=== PATIENT | male | born 1965 | race Caucasian/White ===

== ENCOUNTER 2023-03-23 05:32 | Outpatient (CLI) | payer OTHER ==
[~2023-03-23] VITALS: Ht 160 cm; Wt 121.4 kg
== END 2023-03-23 13:30 | disposition home or self-care (01) ==
LOC: PREOP 05:32
PROVIDERS: ATTEND Specialist
DX: Z01.818 Encounter for other preprocedural examination (principal)

== ENCOUNTER 2023-03-25 07:37 | Day surgery (SDC) | payer OTHER ==
[~2023-03-25] VITALS: Ht 160 cm; Wt 121.4 kg
[2023-03-25] MEDS ORDERED: MIDAZOLAM INJ 2 MG/2 ML VIAL ONE (07:53)
[2023-03-25] MEDS ORDERED: TIMOLOL 0.5% (CATARACTS) 0.3 ML BTL OU PRN (08:00)
[2023-03-25] MEDS ORDERED: MOXIFLOXACIN OPHTH SOLN 5 MG/ML 0.5 ML SYRINGE OP ONE (08:00)
[2023-03-25] MEDS ORDERED: LIDOCAINE PF 1% 2 ML VIAL IR PRN (08:00)
[2023-03-25] MEDS ORDERED: POVIDONE IODINE OPHTH SOLN 5% 30 ML OP ONE (08:00)
[2023-03-25] MEDS: TETRACAINE 0.5% OPHTH SOLN 5 ML BTL OU PRN ×4 (08:08→08:26)
[2023-03-25] MEDS: TROPICAMIDE 1% OPH SOLN (MYDRIACYL) 15 ML BTL OP SCH ×3 (08:15→08:26)
[2023-03-25] MEDS: PHENYLEPHRINE 10% OPHTH SOLN 5 ML BTL OU SCH ×3 (08:15→08:26)
[2023-03-25 08:17] VITALS: BP 123/77
--- NOTE | 2023-03-25 08:47 | Ophthalmologist Pre-Op Note ---
Pre-Operative Progress Note H&P Reviewed The H&P was reviewed, patient examined and no changes noted. Date H&P Reviewed: Mar 25, 2023 Time H&P Reviewed: 08:47 Pre-Op Dx Cataract, Left Eye JULIOCESAR PORTER MD Mar 25, 2023 08:47
--- NOTE | 2023-03-25 09:09 | Ophthalmology Operative Report ---
Cataract removal/placement IOL PREOPERATIVE DIAGNOSIS: Cataract Left Eye POSTOPERATIVE DIAGNOSIS: Cataract Left Eye PROCEDURE: Cataract removal and placement of posterior chamber implant, left eye SURGEON: Jasper Porter ANESTHESIA: Topical with sedation COMPLICATIONS: None ESTIMATED BLOOD LOSS: Minimal DESCRIPTION OF PROCEDURE: After proper informed consent was obtained, the patient, a 57 male, was taken to the Operating Room and the left eye was anesthetized with tetracaine. The left eye was then prepped and draped in the usual manner. A wire lid speculum was placed. A paracentesis was made at the left hand position. Preservative free lidocaine was injected into the anterior chamber followed by viscoelastic. A clear corneal incision was made in the temporal position. A capsulorrhexis was preformed and the central nuclear and cortical material were removed. The posterior capsule was polished and an Papo 21.5 CNA0T0 was placed into the capsular bag. The residual viscoelastic was aspirated and balanced saline solution was injected into the anterior chamber. Moxifloxacin was injected into the anterior chamber. The wound was checked and found to be water tight. The patient tolerated the procedure well without complications. JASPER PORTER MD Mar 25, 2023 09:09
[2023-03-25 09:28] VITALS: BP 110/64
--- NOTE | 2023-03-25 12:47 | Anesthesia-General Post-Op ---
MAC Patient Condition Mental Status/LOC: Same as Preop Cardiovascular: Satisfactory Nausea/Vomiting: Absent Respiratory: Satisfactory Pain: Controlled Complications: Absent Post Op Complications Complications None Follow Up Care/Instructions Patient Instructions None needed. Anesthesiology Discharge Order Discharge Order Patient was doing well after the procedure with no complaints, stable vital signs, no apparent adverse anesthesia problems. No complications reported per nursing. YVONNE BOGGS DO Mar 25, 2023 12:47
== END 2023-03-25 09:30 | disposition home or self-care (01) ==
LOC: SDC 07:37
PROVIDERS: ATTEND Specialist
DX: H25.9 Unspecified age-related cataract (principal)
CPT/HCPCS: 66984; V2632